=== PATIENT | male | born 1965 | race Caucasian/White ===

== ENCOUNTER 2017-01-17 01:16 | Emergency (ER) | payer OTHER ==
[~2017-01-17] VITALS: Ht 188 cm; Wt 99.0 kg
[2017-01-17 01:18] VITALS: BP 142/95; PULSE 90; RESP 16; TEMP 97.8; O2SAT 96
[2017-01-17 02:05] VITALS: O2SAT 97
[2017-01-17 02:24] LABS: AUTOMATED NEUTROPHIL # 13.3 TH/MM3 (1.8-7.7); BASOPHIL # 0.1 TH/MM3 (0-0.2); BASOPHIL % 0.6 % (0.0-2.0); EOSINOPHIL # 0.2 TH/MM3 (0-0.4); EOSINOPHIL % 1.3 % (0.0-4.0); HEMATOCRIT 44.2 % (39.0-51.0); HEMO FLAGS DIFF FINAL; LYMPH % 11.8 % (9.0-44.0); MEAN CELL VOLUME 86.4 FL (80.0-100.0); MEAN CORPUSCULAR HEMOGLOBIN 29.1 PG (27.0-34.0); MEAN CORPUSCULAR HGB CONC 33.6 % (32.0-36.0); MONO % 9.3 % (0.0-8.0); PLATELET COUNT 323 TH/MM3 (150-450); RED BLOOD COUNT 5.11 MIL/MM3 (4.50-5.90); RED CELL DISTRIBUTION WIDTH 13.2 % (11.6-17.2); WHITE BLOOD COUNT 17.3 TH/MM3 (4.0-11.0)
[2017-01-17 02:39] LABS: APTT (PATIENT) 22.9 SEC (24.3-30.1); PROTHROMBIN TIME - PATIENT 10.7 SEC (9.8-11.6)
[2017-01-17 02:44] LABS: ALT (GPT) 73 U/L (12-78); ANION GAP 5 MEQ/L (5-15); AST (GOT) 48 U/L (15-37); BICARBONATE 28.8 MEQ/L (21.0-32.0); BLOOD UREA NITROGEN 21 MG/DL (7-18); CHLORIDE 109 MEQ/L (98-107); GLOMERULAR FILTRATION RATE 70 ML/MIN (>89); POTASSIUM 4.2 MEQ/L (3.5-5.1); SODIUM (NA) 143 MEQ/L (136-145)
[2017-01-17 02:47] LABS: ALKALINE PHOSPHATASE 83 U/L (45-117); TOTAL BILIRUBIN ADULT 0.8 MG/DL (0.2-1.0)
--- NOTE | 2017-01-17 03:09 | RADRPT ---
EXAM DATE/TIME: 01/17/2017 02:53 [facility] COMPARISON: No previous studies available for comparison. INDICATIONS : Abdominal pain. MEDICAL HISTORY : None. SURGICAL HISTORY : None. ENCOUNTER: Initial ACUITY: 1 day PAIN SCORE: 0/10 LOCATION: Bilateral chest FINDINGS: The lungs are clear without infiltrate, nodule, or mass. There is no appreciable pleural effusion fo r technique. Heart and mediastinum are unremarkable. CONCLUSION: No acute cardiopulmonary disease. Mirta Young MD on January 17, 2017 at 3:08 Board Certified Radiologist. This report was verified electronically.
[2017-01-17] MEDS ORDERED: IOHEXOL 350 MG/ML 10 ML VIAL (for RAD DIAG) IV ONE (03:18)
--- NOTE | 2017-01-17 03:49 | PD ---
HPI Chief Complaint: Abdominal Pain Time Seen by Provider: 01:54 Travel History International Travel<30 days: No Contact w/Intl Traveler<30days: No Traveled to known affect area: No History of Present Illness HPI The patient is a 51 year old male who presents to the [facility] emergency department with a history of sudden onset of abdominal pain that began at 10 PM. The patient reports that the pain moves all throughout his entire abdomen and at times radiates into the rectum as well as his penis. The patient reports the pain is sharp in character. He reports that the pain is constant and progressively worse with time. He reports that passing gas helps briefly, however the pain quickly worsened again. He reports that his last bowel movement was earlier today. He reports that he does have some dysuria with urinary frequency and urgency. He denies any prior history of prostate enlargement, urinary tract infections or prostatitis. He reports having nausea and vomiting 1. He denies having any blood in his stool. The patient reports that he began to have a subjective fever prior to arrival. Otherwise on review of systems, the patient denies any recent cough, congestion, neck pain, chest pain, shortness of breath, or neurologic symptoms. [facility] Past Medical History Narrative Medical The patient's past medical history is significant for having a kidney stone in 1st grade. Medical History: Denies Significant Hx Tetanus Vaccination: < 5 Years Influenza Vaccination: No Past Surgical History Narrative Surgical acl reconstruction on left knee, right foot partial amputation, right forearm orif. Social History Alcohol Use: Yes (occasionally, 2 beers tonight.) Tobacco Use: No Substance Use: No Allergies-Medications (Allergen,Severity, Reaction): Coded Allergies: No Known Allergies (Unverified , 01/17/17) Reported Meds & Prescriptions Reported Meds & Active Scripts Active Lortab (Hydrocodone-Acetaminophen) 5-325 Mg Tab 1 Tab PO Q6H PRN Phenergan (Promethazine HCl) 25 Mg Tablet 25 Mg PO Q6H PRN Flagyl (Metronidazole) 500 Mg Tab 500 Mg PO QID Cipro (Ciprofloxacin HCl) 500 Mg Tab 500 Mg PO BID Narrative Medication None. Review of Systems Except as stated in HPI: all other systems reviewed are Neg General / Constitutional: Positive: Fever (subjective) Eyes: No: Visual changes HENT: No: Headaches Cardiovascular: No: Chest Pain or Discomfort Respiratory: No: Shortness of Breath Gastrointestinal: Positive: Nausea, Vomiting, Abdominal Pain, No: Diarrhea, Hematemesis, Hematochezia, Constipation, Changes in Bowel Habits, Loss of Appetite Genitourinary: Positive: Urgency, Frequency, Dysuria Musculoskeletal: No: Pain Skin: No Rash Neurologic: No: Weakness, Focal Abnormalities, Change in Mentation, Slurred Speech, Sensory Disturbance Psychiatric: No: Depression Endocrine: No: Polydipsia Hematologic/Lymphatic: No: Easy Bruising Physical Exam Narrative General: The patient is a well-developed well-nourished male, uncomfortable appearing on arrival, holding his abdomen. Head and Neck exam: Head is normocephalic atraumatic. Eyes: EOMI, pupils are equal round and reactive to light. Nose: Midline septum with pink mucous membranes Mouth: Dentition unremarkable. Moist mucus membranes. Posterior oropharynx is not erythematous. No tonsillar hypertrophy. Uvula midline. Airway patent. Neck: No palpable lymphadenopathy. No nuchal rigidity. No thyromegaly. Cardiovascular: Regular rate and rhythm without murmurs, gallops, or rubs. Lungs: Clear to auscultation bilaterally. No wheezes, rhonchi, or rales. Abdomen: Soft, with tenderness on palpation that is worse in the suprapubic and right lower quadrant of the abdomen, although also present to a lesser degree in the left lower quadrant of the abdomen. No guarding, rebound, or rigidity. Negative [place] sign. No point tenderness on McBurney's point. Normal bowel sounds are audible. Extremities: No clubbing, cyanosis, or edema. 2+ pulses in all 4 extremities. Back: No spinous process tenderness to palpation. Bilateral CVA tenderness on palpation. Neurologic Exam: Grossly nonfocal. Skin Exam: No rash noted. Intact skin that is warm and dry. Genital exam: The patient is a circumcised male. No genital lesions or rash noted. No scrotal pain or swelling on palpation. No palpable testicle masses or tenderness on palpation. No palpable hernia. Data Data Last Documented VS Vital Signs Date Time Temp Pulse Resp B/P Pulse Ox O2 Delivery O2 Flow Rate FiO2 01/17/17 02:05 97 Room Air 01/17/17 01:18 97.8 90 16 142/95 Orders Electrocardiogram (01/17/17 01:57) Complete Blood Count With Diff (01/17/17 01:57) Comprehensive Metabolic Panel (01/17/17 01:57) Prothrombin Time / Inr (Pt) (01/17/17 01:57) Act Partial Throm Time (Ptt) (01/17/17 01:57) Lipase (01/17/17 01:57) Urinalysis - C+S If Indicated (01/17/17 01:57) Chest, Single Ap (01/17/17 01:57) Ecg Monitoring (01/17/17 01:57) Oximetry (01/17/17 01:57) Lactic Acid (01/17/17 01:57) Ct Abd/Pel W Iv Contrast(Rout) (01/17/17 01:57) Iohexol 350 Inj (Omnipaque 350 Inj) (01/17/17 03:18) Sodium Chlor 0.9% 1000 Ml Inj (Ns 1000 M (01/17/17 04:00) Ondansetron Inj (Zofran Inj) (01/17/17 04:00) Morphine Inj (Morphine Inj) (01/17/17 04:00) Ciprofloxacin (Cipro) (01/17/17 04:00) Metronidazole 500 Mg Inj (Flagyl 500 Mg (01/17/17 04:00) Labs Laboratory Tests Test 01/17/17 01/17/17 02:10 03:42 White Blood Count 17.3 TH/MM3 Red Blood Count 5.11 MIL/MM3 Hemoglobin 14.9 GM/DL Hematocrit 44.2 % Mean Corpuscular Volume 86.4 FL Mean Corpuscular Hemoglobin 29.1 PG Mean Corpuscular Hemoglobin 33.6 % Concent Red Cell Distribution Width 13.2 % Platelet Count 323 TH/MM3 Mean Platelet Volume 7.9 FL Neutrophils (%) (Auto) 77.0 % Lymphocytes (%) (Auto) 11.8 % Monocytes (%) (Auto) 9.3 % Eosinophils (%) (Auto) 1.3 % Basophils (%) (Auto) 0.6 % Neutrophils # (Auto) 13.3 TH/MM3 Lymphocytes # (Auto) 2.0 TH/MM3 Monocytes # (Auto) 1.6 TH/MM3 Eosinophils # (Auto) 0.2 TH/MM3 Basophils # (Auto) 0.1 TH/MM3 CBC Comment DIFF FINAL Differential Comment Prothrombin Time 10.7 SEC Prothromb Time International 1.0 RATIO Ratio Activated Partial 22.9 SEC Thromboplast Time Sodium Level 143 MEQ/L Potassium Level 4.2 MEQ/L Chloride Level 109 MEQ/L Carbon Dioxide Level 28.8 MEQ/L Anion Gap 5 MEQ/L Blood Urea Nitrogen 21 MG/DL Creatinine 1.11 MG/DL Estimat Glomerular Filtration 70 ML/MIN Rate Random Glucose 140 MG/DL Lactic Acid Level 1.8 mmol/L Calcium Level 9.0 MG/DL Total Bilirubin 0.8 MG/DL Aspartate Amino Transf 48 U/L (AST/SGOT) Alanine Aminotransferase 73 U/L (ALT/SGPT) Alkaline Phosphatase 83 U/L Total Protein 7.4 GM/DL Albumin 3.9 GM/DL Lipase 185 U/L Urine Color YELLOW Urine Turbidity CLEAR Urine pH 6.0 Urine Specific [place] 1.036 Urine Protein NEG mg/dL Urine Glucose (UA) NEG mg/dL Urine Ketones NEG mg/dL Urine Occult Blood TRACE Urine Nitrite NEG Urine Bilirubin NEG Urine Urobilinogen LESS THAN 2.0 MG/DL Urine Leukocyte Esterase NEG Urine RBC 2 /hpf Urine WBC 1 /hpf Urine Mucus FEW /lpf Microscopic Urinalysis Comment CULT NOT INDICATED MDM Medical Decision Making Medical Screen Exam Complete: Yes Emergency Medical Condition: Yes Medical Record Reviewed: Yes Interpretation(s) Last Impressions Chest X-Ray 01/17/17156 Signed Impressions: Service Date/Time: Tuesday, January 17, 2017 02:53 - CONCLUSION: No acute cardiopulmonary disease. Mirta Young MD Abdomen/Pelvis CT 01/17/17156 Signed Impressions: Service Date/Time: Tuesday, January 17, 2017 03:13 - CONCLUSION: 1. Acute diverticulitis. 2. Fatty liver. Mirta Young MD Differential Diagnosis Kidney stones, versus pyelonephritis, versus diverticulitis, versus prostatitis Narrative Course During the course of the patients emergency department visit, the patients history, examination, and differential diagnosis were reviewed with the patient. The patient had IV access obtained and blood work sent for analysis. The patient had an EKG done on arrival. The patient's EKG shows a sinus rhythm heart rate of 88, QRS duration 94 ms, QTC 381 ms. The patient was initially provided normal saline 1 L IV fluid bolus, Zofran for nausea, morphine for pain. The patients laboratory studies were reviewed and remarkable for a white count of 17.3, hemoglobin 14.9, platelets 323 with neutrophils 77, monocytes 9.3, CMP is remarkable for chloride of 109, BUN 21, GFR 70, glucose 140, AST 48, lipase 185, lactic acid 1.8. PT 10.7, PTT 22.9, urinalysis shows trace occult blood, 2 RBCs, no other acute abnormality. Radiology studies were reviewed and remarkable for a CT scan of the abdomen and pelvis shows evidence of acute diverticulitis without abscess or perforation. The patient was given ciprofloxacin 500 mg by mouth 1, Flagyl 500 mg IV. The patient will be discharged home on a clear liquid diet over the next 24 hours. The patient was given a prescription for Cipro and Flagyl. The patient is resting comfortably and feels better, is alert and in no distress. The patients results and examination findings were discussed with the patient. The repeat examination is unremarkable and benign. The history, exam, diagnostic testing, and current condition do not suggest any significant pathology to warrant further testing, continued ED treatment, admission, or surgical evaluation at this point. The vital signs have been stable. The patient does not have uncontrollable pain, intractable vomiting, or other significant symptoms. The patient's condition is stable and appropriate for discharge. The patient will pursue further outpatient evaluation with a primary care physician or other designated or consulting physician as indicated in the discharge instructions. The patient expressed understanding and was agreeable with this plan. Diagnosis Primary Impression: Diverticulitis Qualified Code: K57.32 - Diverticulitis of large intestine without perforation or abscess without bleeding Referrals: Primary Care Physician 3 days Patient Instructions: Diverticulitis (ED), Diverticulitis Diet (ED), General Instructions Med/Other Pt SpecificInfo: Prescription(s) given Scripts Hydrocodone-Acetaminophen (Lortab)5-325 Mg Tab1 Tab PO Q6H PRN (PAIN) #12 TAB Ref 0 Prov:Pushpa Cazares MD 01/17/17 Promethazine (Phenergan)25 Mg [id number] Mg PO Q6H PRN (NAUSEA OR VOMITING) #7 TAB Ref 0 Prov:Pushpa Cazares MD 01/17/17 Metronidazole (Flagyl)500 Mg [id number] Mg PO QID #27 TAB Ref 0 Prov:Pushpa Cazares MD 01/17/17 Ciprofloxacin (Cipro)500 Mg [id number] Mg PO BID #19 TAB Ref 0 Prov:Pushpa Cazares MD 01/17/17 Disposition: 01 DISCHARGE HOME Condition: Stable Pushpa Cazares MD Jan 17, 2017 03:49
--- NOTE | 2017-01-17 03:50 | RADRPT ---
EXAM DATE/TIME: 01/17/2017 03:13 [facility] COMPARISON: No previous studies available for comparison. INDICATIONS : Lower quadrant abdominal pain and elevated white count. IV CONTRAST: 96 cc Omnipaque 350 (iohexol) IV ORAL CONTRAST: No oral contrast ingested. RADIATION DOSE: 22.12 CTDIvol (mGy) MEDICAL HISTORY : None SURGICAL HISTORY : None. ENCOUNTER: Initial ACUITY: 1 day PAIN SCALE: 7/10 LOCATION: Bilateral lower quadrant abdomen TECHNIQUE: Volumetric scanning of the abdomen and pelvis was performed. Using automated exposure control and adjustment of the mA and/or kV according to patient size, radiation dose was kept as low as reasonably achievable to obtain optimal diagnostic quality images. FINDINGS: CT Abdomen: The spleen, pancreas, adrenals are unremarkable. There is no evidence for any appreciable pathological adenopathy, free fluid, or bowel obstruction. The liver is fatty without focal lesions or technique. There are subcentimeter cysts in both kidneys. CT pelvis: There is no evidence for mass, abscess formation, or any significant adenopathy within the pelvis. There are scattered diverticuli with haziness surrounding the perisigmoidal fat plane at the junction of the rectum characteristic of acute diverticulitis. CONCLUSION: 1. Acute diverticulitis. 2. Fatty liver. Mirta Young MD on January 17, 2017 at 3:45 Board Certified Radiologist. This report was verified electronically.
[2017-01-17] MEDS ORDERED: ONDANSETRON HCL 4 MG/2 ML VIAL IV ONE (04:00)
[2017-01-17] MEDS ORDERED: metroNIDAZOLE 500 MG INJ 100 ML IV ONE (04:00)
[2017-01-17] MEDS ORDERED: SODIUM CHLOR 0.9% 1000 ML INJ 1,000 ML IV ONE (04:00)
[2017-01-17] MEDS ORDERED: CIPROFLOXACIN 500 MG TAB PO ONE (04:00)
[2017-01-17] MEDS ORDERED: MORPHINE SULFATE 4 MG/ML INJ IV PUSH ONE (04:00)
[2017-01-17 04:08] LABS: BLOOD, URINE TRACE (NEG); COMMENT (UR) CULT NOT INDICATED; CULTURE IF INDICATED CULT NOT INDICATED; GLUCOSE,URINE NEG (NEG); KETONE, URINE NEG (NEG); MUCUS URINE FEW /lpf (OCC); NITRITE,URINE NEG (NEG); URINE COLOR YELLOW (YELLW/STRAW)
[2017-01-17] MEDS ORDERED: PROM25TA10 PO (04:31)
[2017-01-17] MEDS ORDERED: HYDR-3533 PO (04:31)
[2017-01-17] MEDS ORDERED: CIPR-9 PO (04:31)
[2017-01-17] MEDS ORDERED: METR-1 PO (04:31)
--- NOTE | 2017-01-17 11:15 | EKG ---
Date Performed: 01/17/2017 Time Performed: 02:33:20 PTAGE: 51 years EKG: Sinus rhythm NORMAL ECG NO PREVIOUS TRACING DOCTOR: Jose Cazares Interpretating Date/Time 01/17/2017 11:13:54
== END 2017-01-17 04:55 | disposition home or self-care (01) ==
LOC: NEPE 01:16
DX: R10.32 Left lower quadrant pain (principal); K57.32 Diverticulitis of large intestine without perforation or abscess without bleeding; R30.0 Dysuria; K76.0 Fatty (change of) liver, not elsewhere classified; D72.829 Elevated white blood cell count, unspecified
CPT/HCPCS: 71010; 74177; 80053; 81001; 83605; 83690; 85025; 85610; 85730; 93005; 96374; 96375; 99285; J2270; J2405; J7030; Q9967